=== PATIENT | female | born 1950 | race Caucasian/White ===

== ENCOUNTER 2018-05-26 12:16 | Outpatient (CLI) | payer BC ==
--- NOTE | 2018-05-26 16:04 | MRI ---
MRI OF THE RIGHT SHOULDER 05/26/18 PROVIDED CLINICAL HISTORY: Right shoulder pain. FINDINGS: Evaluation is limited by patient motion. There is full thickness, full width retracted tearing of the supraspinatus and infraspinatus tendons with traction to about the level of the acromion. There is muscular volume loss involving supraspinat us and infraspinatus without evidence for fatty infiltration. The cranial fibers of the subscapularis tendon demonstrate changes suggesting of partial thickness undersurface tearing suboptimally evaluat ed given the degree patient motion on the sagittal and axial sequences. The intra-articular long head biceps tendon appears grossly intact and normally located. There is a s mall glenohumeral joint effusion communicating with a prominent subacromial subdeltoid bursal fluid. The glenoid labrum and glenohumeral articular cartilage are not well evaluated on the basis of this e xamination. Acromioclavicular joint osteoarthrosis is demonstrated without significant mass effect upon the subja cent supraspinatus. Regional marrow and muscular signal appear otherwise unremarkable. IMPRESSION: 1. Limited study due to patient motion. 2. Full thickness, full width retracted tears of the supraspinatus and infraspinatus tendons. 3. Probably partial thickness undersurface tearing involving the cranial fibers of subscapularis . 4. Small glenohumeral joint effusion with prominent subacromial subdeltoid bursal fluid. 5. Acromioclavicular joint osteoarthrosis. POS: [facility]
== END 2018-05-26 12:17 | disposition home or self-care (01) ==
LOC: SCSMRI 12:16
PROVIDERS: ATTEND Orthopaedic Surgery
DX: M75.101 Unspecified rotator cuff tear or rupture of right shoulder, not specified as traumatic (principal); M75.121 Complete rotator cuff tear or rupture of right shoulder, not specified as traumatic; M19.011 Primary osteoarthritis, right shoulder; M25.411 Effusion, right shoulder

== ENCOUNTER 2018-06-22 12:51 | Outpatient (CLI) | payer BC ==
[2018-06-22 14:22] LABS: Hemoglobin 13.6 g/dL (12.0-16.0); Mean Corpuscular Hemoglobin 32.6 pg (27.0-31.0); Mean Corpuscular Volume 95.9 fL (78.0-98.0); Mean Platelet Volume 6.6 fL (7.4-10.4); Platelet Count 302 thou/uL (130-400); RBC Distribution Width 11.7 % (11.5-14.5); Red Blood Cell (RBC) Count 4.17 mill/uL (4.20-5.40); White Blood Cell (WBC) Count 7.3 thou/uL (4.8-10.8)
[2018-06-22 14:40] LABS: Anion Gap 12 mmol/L (10-20); BUN (Urea Nitrogen) 21 mg/dL (9.8-20.1); Calc. Creatinine Clearance 0 mL/min (70-130); Calcium 9.7 mg/dL (7.8-10.44); Carbon Dioxide 25 mmol/L (23-31); Chloride 107 mmol/L (98-107); Estimated GFR-MDRD 66; Glucose 98 mg/dL (80-115); Potassium 3.7 mmol/L (3.5-5.1); Sodium 140 mmol/L (136-145)
--- NOTE | 2018-06-23 12:06 | EKG ---
Test Reason : Blood Pressure : / mmHG Vent. Rate : 084 BPM Atrial Rate : 084 BPM P-R Int : 168 ms QRS Dur : 082 ms QT Int : 360 ms P-R-T Axes : 048 -19 047 degrees QTc Int : 425 ms Normal sinus rhythm Minimal voltage criteria for LVH, may be normal variant Borderline ECG When compared with ECG of 09-OCT-2014 16:21, No significant change was found Confirmed by SOTERO COHEN ([id number]) on 06/23/2018 12:05:59 PM Referred By: TALYA Confirmed By:SOTERO COHEN
== END 2018-06-22 12:52 | disposition home or self-care (01) ==
LOC: LABBT 12:51
PROVIDERS: ATTEND Orthopaedic Surgery
DX: Z01.818 Encounter for other preprocedural examination (principal); M75.101 Unspecified rotator cuff tear or rupture of right shoulder, not specified as traumatic
CPT/HCPCS: 80048; 85027; 93005; 93010

== ENCOUNTER 2018-06-24 05:48 | Day surgery (SDC) | payer BC ==
[2018-06-22 13:12] VITALS: BMI 30.1
[2018-06-24] MEDS ORDERED: CEFAZOLIN/Water 2 GM/20 ML SYRINGE ONE (05:57)
[2018-06-24] MEDS ORDERED: Midazolam HCl 2 mg/2 ml Vial ONE (06:24)
[2018-06-24] MEDS ORDERED: Fentanyl 100 MCG/2 ML VIAL ONE (06:24)
[2018-06-24] MEDS ORDERED: Bupivacaine/Epinephrine 0.25% 30 ML VIAL ONE (06:46)
[2018-06-24] MEDS ORDERED: traMADol HCl 50 MG TAB PO PRN ×2 (07:29)
[2018-06-24] MEDS ORDERED: HYDROcodone/Acetaminophen 5/325 mg Tablet PO PRN ×2 (07:29)
[2018-06-24] MEDS ORDERED: Ketorolac Tromethamine 30 MG/ML VIAL IVP PRN (07:29)
[2018-06-24] MEDS ORDERED: Zolpidem Tartrate 5 MG TAB PO PRN (07:29)
[2018-06-24] MEDS ORDERED: Fentanyl 100 MCG/2 ML VIAL IV PRN (07:29)
[2018-06-24] MEDS ORDERED: Ropivacaine HCl/PF 1,100 MG in Sodium Chloride 0.9% 440 ML NERVE BLCK SCH (07:29)
[2018-06-24] MEDS ORDERED: Ondansetron HCl/PF 4 MG/2 ML Vial IVP PRN (07:29)
[2018-06-24] MEDS ORDERED: Promethazine HCl 25 MG/ML VIAL IM PRN (07:29)
--- NOTE | 2018-06-24 10:15 | OP ---
DATE OF PROCEDURE: 06/24/2018 PREOPERATIVE DIAGNOSES: Right rotator cuff tear, supraspinatus, infraspinatus, biceps tendonopathy. POSTOPERATIVE DIAGNOSES: 1. Right rotator cuff tear, full thickness. X-rays demonstrate a retraction joint line. 2. Biceps tendonopathy with high grade partial thickness tears in 3 sites. 3. Impingement. PROCEDURE PERFORMED: 1. Right arthroscopic rotator cuff repair, double row transosseous equivalent. 2. Subacromial decompression. 3. Biceps tenotomy. STAFF: Ronnell Agosto M.D. CUFF CUTTER: None. ANESTHESIA: Dr. Morena Alvarez. The patient received a general endotracheal intubation with interscalene block. ESTIMATED BLOOD LOSS: 30 mL. TOURNIQUET TIME: None. IMPLANTS: A 5.5 corkscrew x2 and a 5.5 SwiveLock x2. ANTIBIOTICS: Ancef 2 grams. COMPLICATIONS: None. HISTORY OF PRESENT ILLNESS: Ms. Mckeon is a 67-year-old female who presented to me with pain after injuring her shoulder throwing a suitcase over her shoulder and bowling about 3 months ago. The patient has night pain, pain with lifting. She scales her pain as 5/10. The patient has full thickness tear as reported. I discussed with the patient before the surgery, risks and benefits of surgery to include pain, scar, bleeding, infection, damage to vital structures, decreased range of motion, strengthening, continued pain despite surgical intervention. The patient understood these risks and benefits and elected to proceed. PROCEDURE IN DETAIL: Time out was performed designating the patient's right shoulder as the operative site based on site, consents and markings. After completion of timeout, the patient's right shoulder was prepped and draped in sterile fashion. She was placed in a beach chair position, all bony prominences were well-padded. Anesthesia was placed in a sterile fashion. We placed injection subacromial for pain relief and help with Marcaine and epinephrine. We then placed a posterior working portal and anterior working portal, visualized intraarticularly. I immediately saw the full thickness tear with retraction. The patient had a biceps tendonopathy. No subscapularis tear. There was only barely teres minor remaining. I elected tobecause of the high grade partial tearing of the biceps to perform a tenotomy, which I cut at the base and through the stump to help to stop it at the bicipital groove. I then took a bur, took down a small spur on the acromion and smoothed down the acromion and took down the tissue to expose the acromion. I then took down the patient's obvious chronic tear by taking cautery followed by a bur to bur the bone to create a bleeding surface for our repair. I placed two 5.5 corkscrews and the footprint. Based on the placement, I felt if I put a third it would be too close to one another. I passed 8 sutures through, tied all 4 knots, 1 knot had been passed through and cut, but the knot was intact and the limb was intact. I then used 4 limbs anteriorly and did a double row anchor anteriorly leaving the sutures and the eyelet in place. I did the second double row posteriorly with 3 limbs. I had a good overall repair, but I had 2 little dog ears which I used those 2 remnant Arthrex fiber wires to pass through in a horizontal mattress stitch and cut the knots to help with repair. I liked the overall alignment, I felt like we had gotten a watertight repair. I washed, closed with #2 2-0 Vicryl, placed the patient in adduction plane, began elbow to hand motion. She will follow up with me in 2 weeks. RAKEL
[2018-06-24] MEDS ORDERED: Ropivacaine 0.2% HCl/PF (40 MG/20 ML VIAL) ONE (14:35)
[2018-06-24] MEDS ORDERED: Ropivacaine 0.5% HCl/PF (150 MG/30 ML VIAL) ONE (14:35)
[2018-06-24] MEDS ORDERED: PHENYLEPHRINE-NS 100 MCG/ML 10 ML SYRINGE ONE (14:53)
[2018-06-24] MEDS ORDERED: ePHEDrine/0.9% NaCl/PF SYRINGE 50 mg/10 ml ONE (14:53)
[2018-06-24] MEDS ORDERED: Dexamethasone 20 MG/5 ML VIAL ONE (14:53)
[2018-06-24] MEDS ORDERED: Glycopyrrolate 0.2 MG/ML 5 ML SYRINGE ONE (14:53)
[2018-06-24] MEDS ORDERED: Lidocaine 1% PF 5 ML VIAL ONE (14:53)
[2018-06-24] MEDS ORDERED: Ondansetron HCl/PF 4 MG/2 ML Vial ONE (14:53)
[2018-06-24] MEDS ORDERED: PROPOFOL 200 MG/20 ML VIAL ONE (14:53)
== END 2018-06-24 11:10 | disposition home or self-care (01) ==
LOC: SDC 05:48
PROVIDERS: ATTEND Orthopaedic Surgery
PROC: 0LQ14ZZ Repair Right Shoulder Tendon, Percutaneous Endoscopic Approach (ICD-10-PCS; principal; 2018-06-24)
PROC: 0RNJ4ZZ Release Right Shoulder Joint, Percutaneous Endoscopic Approach (ICD-10-PCS; principal; 2018-06-24)
DX: S46.011A Strain of muscle(s) and tendon(s) of the rotator cuff of right shoulder, initial encounter (principal); M75.21 Bicipital tendinitis, right shoulder; M25.811 Other specified joint disorders, right shoulder; K21.9 Gastro-esophageal reflux disease without esophagitis; X50.9XXA Other and unspecified overexertion or strenuous movements or postures, initial encounter; Z79.52 Long term (current) use of systemic steroids; Z79.82 Long term (current) use of aspirin; Z79.899 Other long term (current) drug therapy
CPT/HCPCS: C1713; J1100; J2001; J2250; J2405; J2704; J2795; J3010; J7050

== ENCOUNTER 2021-10-18 13:23 | Outpatient (CLI) | payer MEDICARE | END 2021-10-18 13:24 | disposition home or self-care (01) | LOC: SCSMRI 13:23 | PROVIDERS: ATTEND Family Medicine | DX: M51.16 Intervertebral disc disorders with radiculopathy, lumbar region (principal); M47.26 Other spondylosis with radiculopathy, lumbar region; M48.061 Spinal stenosis, lumbar region without neurogenic claudication | CPT/HCPCS: 72100; 72148 ==

== ENCOUNTER 2023-08-17 10:12 | Outpatient (CLI) | payer MEDICARE ==
[2023-08-17 11:11] LABS: Hematocrit 40.4 % (34.9-44.5); Hemoglobin 13.7 g/dL (12.0-15.5); Mean Corpuscular HGB CONC 33.9 g/dL (32.0-36.0); Mean Corpuscular Hemoglobin 32.2 pg (27.0-33.0); Mean Corpuscular Volume 94.8 fl (81.6-98.3); Mean Platelet Volume 9.6 fl (7.4-10.4); Platelet Count 278 10x3/uL (150-450); RBC Distribution Width 12.6 % (11.5-14.5); Red Blood Cell (RBC) Count 4.26 10x6/uL (3.90-5.03); White Blood Cell (WBC) Count 4.6 10x3/uL (3.5-10.5)
[2023-08-17 11:28] LABS: Anion Gap 13 mmol/L (10-20); BUN (Urea Nitrogen) 14 mg/dL (9.8-20.1); Calc. Creatinine Clearance 0 mL/min (70-130); Calcium 9.4 mg/dL (7.8-10.44); Carbon Dioxide 26 mmol/L (23-31); Chloride 105 mmol/L (98-107); Estimated GFR 82; Glucose 85 mg/dL (80-115); Potassium 4.2 mmol/L (3.5-5.1); Sodium 140 mmol/L (136-145)
== END 2023-08-17 10:13 | disposition home or self-care (01) ==
LOC: LABBT 10:12
PROVIDERS: ATTEND Neurological Surgery
DX: Z01.818 Encounter for other preprocedural examination (principal); M43.16 Spondylolisthesis, lumbar region
CPT/HCPCS: 80048; 85027; 93005; 93010

== ENCOUNTER 2023-08-24 06:54 | Observation (INO) | payer MEDICARE ==
[2023-08-17 10:48] VITALS: BMI 28.3
[2023-08-24] MEDS ORDERED: CEFAZOLIN 2 GM VIAL ONE (07:35)
[2023-08-24] MEDS ORDERED: Lidocaine 1% MPF 2 ML VIAL ONE (07:35)
[2023-08-24] MEDS ORDERED: Sodium Chloride 0.9% 100 ML ONE (07:35)
[2023-08-24] MEDS ORDERED: Vancomycin 1 GM VIAL ONE (08:25)
[2023-08-24] MEDS ORDERED: fentaNYL PF 100 MCG/2 ML SYRINGE ONE (08:48)
[2023-08-24] MEDS ORDERED: Lidocaine 1% PF 5 ML VIAL ONE (08:54)
[2023-08-24] MEDS ORDERED: Ondansetron PF 4 MG/2 ML Vial ONE (08:54)
[2023-08-24] MEDS ORDERED: PROPOFOL 200 MG/20 ML VIAL ONE (08:54)
[2023-08-24] MEDS ORDERED: ePHEDrine Sulfate 50 MG/10 ML VIAL ONE (08:54)
[2023-08-24] MEDS ORDERED: Dexamethasone 20 MG/5 ML VIAL ONE (08:54)
[2023-08-24] MEDS ORDERED: Rocuronium Bromide 10 MG/ML (10ML VIAL) ONE (08:54)
[2023-08-24] MEDS ORDERED: PACU-Morphine 4MG/ML VIAL SLOW IVP PRN (09:29)
[2023-08-24] MEDS ORDERED: Promethazine HCl 25 MG/ML VIAL IM PRN (09:29)
[2023-08-24] MEDS ORDERED: HYDROmorphone 2 MG/ML VIAL SLOW IVP PRN (09:29)
[2023-08-24] MEDS ORDERED: Ondansetron HCl/PF 4 MG/2 ML Vial IVP PRN (09:29)
[2023-08-24] MEDS ORDERED: SUGAMMADEX SODIUM 200 MG/2 ML VIAL ONE (09:56)
[2023-08-24] MEDS ORDERED: Cyclobenzaprine 10 MG TAB PO PRN (10:08)
[2023-08-24] MEDS ORDERED: traMADol HCl 50 MG TAB PO PRN (10:08)
[2023-08-24] MEDS ORDERED: Acetaminophen 325 MG TAB PO PRN (10:08)
[2023-08-24] MEDS ORDERED: Acetaminophen/Codeine 30-300mg Tablet PO PRN (10:08)
[2023-08-24] MEDS ORDERED: Milk Of Magnesia 30 ML UDCUP PO PRN (10:08)
[2023-08-24] MEDS ORDERED: Ondansetron PF 4 MG/2 ML Vial IVP PRN (10:08)
[2023-08-24] MEDS ORDERED: Morphine 2 MG/ML VIAL SLOW IVP PRN (10:08)
[2023-08-24] MEDS ORDERED: Promethazine 25 MG TAB PO PRN (10:08)
[2023-08-24] MEDS ORDERED: Mag-Al 1200 mg/1200 mg/30 ML UDCUP PO PRN (10:08)
[2023-08-24] MEDS ORDERED: diphenhydrAMINE 50 MG/ML VIAL IVP PRN (10:08)
[2023-08-24] MEDS ORDERED: fentaNYL 50 mcg/mL 1 mL Vial ONE ×2 (10:50→11:07)
[2023-08-24] MEDS ORDERED: HYDROmorphone 0.5 MG/0.5 ML SYRINGE ONE ×2 (11:16→11:34)
[2023-08-24] MEDS: Sodium Chloride 0.9% 1,000 ML IV SCH (12:28)
[2023-08-24] MEDS: CEFAZOLIN 2 GM in Sodium Chloride 0.9% 100 ML IVPB SCH ×2 (13:28→21:32)
[2023-08-24] MEDS: Acetaminophen/Codeine 30-300mg Tablet PO PRN ×2 (14:18→20:26)
[2023-08-24] MEDS: Pregabalin 75 MG CAP PO SCH ×2 (18:57→20:25)
[2023-08-24] MEDS: Calcium Carbonate 600 MG + Vit D TAB PO SCH (20:27)
[2023-08-24] MEDS ORDERED: Pregabalin 75 MG CAP PO SCH (21:00)
[2023-08-24] MEDS ORDERED: Rosuvastatin 20 MG TAB PO SCH (21:00)
[2023-08-25] MEDS: Sodium Chloride 0.9% 1,000 ML IV SCH (02:35)
[2023-08-25] MEDS ORDERED: Sodium Chloride 0.9% 100 ML ONE (05:15)
[2023-08-25] MEDS: Acetaminophen/Codeine 30-300mg Tablet PO PRN (05:23)
[2023-08-25] MEDS: CEFAZOLIN 2 GM in Sodium Chloride 0.9% 100 ML IVPB SCH (05:31)
[2023-08-25] MEDS ORDERED: Alendronate Sodium 70 mg Tablet PO SCH (06:00)
[2023-08-25 08:13] VITALS: BP 108/64; TEMP 98
[2023-08-25] MEDS: Calcium Carbonate 600 MG + Vit D TAB PO SCH (08:30)
[2023-08-25] MEDS ORDERED: ASCORBIC ACID PO SCH (09:00)
[2023-08-25] MEDS ORDERED: COLLAGEN PO SCH (09:00)
[2023-08-25] MEDS ORDERED: Multivit, Therapeutic 1 TAB PO SCH (09:00)
== END 2023-08-25 09:44 | disposition home or self-care (01) ==
LOC: SDC 06:54 → T4-B 12:07
PROVIDERS: ADMIT Neurological Surgery; ATTEND Neurological Surgery
PROC: 0SG007J Fusion of Lumbar Vertebral Joint with Autologous Tissue Substitute, Posterior Approach, Anterior Column, Open Approach (ICD-10-PCS; principal; 2023-08-24)
DX: M43.16 Spondylolisthesis, lumbar region (principal); M48.062 Spinal stenosis, lumbar region with neurogenic claudication; K21.9 Gastro-esophageal reflux disease without esophagitis; M81.0 Age-related osteoporosis without current pathological fracture
CPT/HCPCS: 20930; 20937; 22612; 22840; 63047; C1713 ×3; C1889 ×2; J3010; J1100; J1170; J2405; J2704; J3370; J3490; J7050